=== PATIENT | female | born 1970 | race African-American/Black ===

== ENCOUNTER 2017-03-23 10:34 | Emergency (ER) | payer MEDICAID, OTHER ==
[~2017-03-23] VITALS: Ht 172.7 cm; Wt 62.0 kg
[2017-03-23] MEDS ORDERED: LIDOCAINE HCL 1% 20ML VIAL (Pyxis) INJ INFIL ONE (13:00)
[2017-03-23 13:55] VITALS: BP 120/60
== END 2017-03-23 13:57 | disposition home or self-care (01) ==
LOC: ER 11:26
DX: S62.637A Displaced fracture of distal phalanx of left little finger, initial encounter for closed fracture (principal); S60.152A Contusion of left little finger with damage to nail, initial encounter; W23.0XXA Caught, crushed, jammed, or pinched between moving objects, initial encounter; Y93.89 Activity, other specified; Y92.89 Other specified places as the place of occurrence of the external cause; Y99.8 Other external cause status; Z88.6 Allergy status to analgesic agent; Z88.1 Allergy status to other antibiotic agents
CPT/HCPCS: 11740; 73130; 81025; 99284; J3490; Z7610; 10140

== ENCOUNTER 2017-07-26 11:11 | Emergency (ER) | payer OTHER ==
[~2017-07-26] VITALS: Ht 172.7 cm; Wt 74.8 kg
[2017-07-26 13:19] LABS: BASOPHILS % 0.7 % (0.0-2.0); EOSINOPHILS % 0.4 % (0.0-5.0); HEMOGLOBIN. 11.9 g/dL (12.0-16.0); LYMPHOCYTES % 24.7 % (20.0-50.0); MEAN CORPUSCULAR HEMOGLOBIN 28.4 pg (28.0-32.0); MEAN CORPUSCULAR VOLUME 85.9 fL (81.0-99.0); MEAN PLATELET VOLUME 7.9 fl (7.4-10.4); MONOCYTES % 4.7 % (2.0-8.0); NEUTROPHILS % 69.5 % (40.0-76.0); PLATELET 203 x1000/uL (130-400); RED BLOOD CELL COUNT 4.19 mill/uL (4.2-5.4); RED CELL DISTRIBUTION WIDTH 14.8 % (11.6-14.6)
[2017-07-26 13:21] LABS: CHLORIDE 105 mEq/L (98-107)
[2017-07-26 13:35] LABS: CLARITY URINE CLEAR (CLEAR); COLOR URINE YELLOW (YELLOW); KETONES URINE NEGATIVE (NEGATIVE); LEUKOCYTE ESTERASE URINE NEGATIVE (NEGATIVE); NITRITE URINE NEGATIVE (NEGATIVE); OCCULT BLOOD URINE NEGATIVE (NEGATIVE); PROTEIN URINE NEGATIVE (NEGATIVE); SPECIFIC GRAVITY URINE 1.016 (1.005-1.030); UROBILINOGEN URINE 0.2 E.U./dL (0.2-1.0)
[2017-07-26 15:00] VITALS: BP 108/64
[2017-07-26] MEDS ORDERED: ACETAMINOPHEN 325MG TABLET PO ONE (15:00)
== END 2017-07-26 16:55 | disposition home or self-care (01) ==
LOC: ER 11:11
DX: S89.91XA Unspecified injury of right lower leg, initial encounter (principal); S60.222A Contusion of left hand, initial encounter; S90.02XA Contusion of left ankle, initial encounter; S90.01XA Contusion of right ankle, initial encounter; Z88.6 Allergy status to analgesic agent; Z88.3 Allergy status to other anti-infective agents; W10.8XXA Fall (on) (from) other stairs and steps, initial encounter; Y93.89 Activity, other specified; Y92.018 Other place in single-family (private) house as the place of occurrence of the external cause
CPT/HCPCS: 36415; 73130; 73562; 73630; 80048; 81003; 81025; 85025; 93005; 99285; L1830; Z7610

== ENCOUNTER 2018-03-28 04:49 | Emergency (ER) | payer BC ==
[~2018-03-28] VITALS: Ht 175.3 cm; Wt 68.0 kg
[2018-03-28 08:14] LABS: CLARITY URINE CLEAR (CLEAR); COLOR URINE YELLOW (YELLOW); KETONES URINE NEGATIVE (NEGATIVE); LEUKOCYTE ESTERASE URINE NEGATIVE (NEGATIVE); NITRITE URINE NEGATIVE (NEGATIVE); OCCULT BLOOD URINE 1+ (NEGATIVE); PROTEIN URINE NEGATIVE (NEGATIVE); SPECIFIC GRAVITY URINE 1.015 (1.005-1.030); UROBILINOGEN URINE 0.2 E.U./dL (0.2-1.0)
[2018-03-28] MEDS ORDERED: ACETAMINOPHEN 325MG TABLET PO ONE (08:15)
[2018-03-28 09:10] VITALS: BP 149/72
== END 2018-03-28 09:12 | disposition home or self-care (01) ==
LOC: ER 04:49
DX: M16.11 Unilateral primary osteoarthritis, right hip (principal); M25.561 Pain in right knee; Z88.6 Allergy status to analgesic agent; Z88.3 Allergy status to other anti-infective agents
CPT/HCPCS: 73502; 73562; 81025; 99284

== ENCOUNTER 2021-04-12 13:35 | Emergency (ER) | payer BC, MEDICAID ==
[~2021-04-12] VITALS: Ht 170.2 cm; Wt 75.0 kg
[2021-04-12 13:39] VITALS: BP 164/77
== END 2021-04-12 15:53 | disposition home or self-care (01) ==
LOC: ER 13:35
DX: S70.02XA Contusion of left hip, initial encounter (principal); V49.49XA Driver injured in collision with other motor vehicles in traffic accident, initial encounter; Y93.89 Activity, other specified; Y92.488 Other paved roadways as the place of occurrence of the external cause; Z96.643 Presence of artificial hip joint, bilateral
CPT/HCPCS: 73502; 99283

== ENCOUNTER 2022-11-08 12:45 | Emergency (ER) | payer MEDICAID ==
[~2022-11-08] VITALS: Ht 175.3 cm; Wt 77.0 kg
[2022-11-08 12:54] VITALS: O2SAT 99
[2022-11-08 13:34] LABS: BASOPHILS % 0.5 % (0.0-2.0); EOSINOPHILS % 0.7 % (0.0-5.0); HEMATOCRIT. 38.5 % (36.0-48.0); HEMOGLOBIN. 12.4 g/dL (12.0-16.0); LYMPHOCYTES % 23.7 % (20.0-50.0); MEAN CORPUSCULAR HEMOGLOBIN 27.8 pg (28.0-32.0); MEAN CORPUSCULAR HGB CONC 32.3 g/dL (31.0-37.0); MEAN CORPUSCULAR VOLUME 86.2 fL (81.0-99.0); MEAN PLATELET VOLUME 8.4 fl (7.4-10.4); MONOCYTES % 4.7 % (2.0-8.0); NEUTROPHILS % 70.4 % (40.0-76.0); PLATELET 221 x1000/uL (130-400); RED BLOOD CELL COUNT 4.46 mill/uL (4.2-5.4); RED CELL DISTRIBUTION WIDTH 15.2 % (11.6-14.6); WHITE BLOOD COUNT 6.9 x1000/uL (4.5-11.0)
[2022-11-08 13:42] LABS: CHLORIDE 105 mEq/L (98-107); INDEX HEMOLYSI 1 (1-3); INDEX ICTERIC 1 (1-4); INDEX LIPEMIC 1 (1-3); POTASSIUM 3.6 mEq/L (3.5-5.1); SODIUM 139 mEq/L (136-145)
[2022-11-08 13:52] LABS: ALANINE AMINOTRANSFERASE 16 IU/L (13-61); ALBUMIN 3.7 g/dL (3.4-5.0); ASPARTATE AMINOTRANSFERASE 21 IU/L (15-37); BILIRUBIN TOTAL 0.3 mg/dL (0.1-1.0); CALCIUM 9.4 mg/dL (8.5-10.1); CREATININE 0.7 mg/dL (0.6-1.3); GLUCOSE 124 mg/dL (70-105); PROTEIN TOTAL 7.9 g/dL (6.0-8.3); UREA NITROGEN BLOOD 12 mg/dL (7-21)
[2022-11-08 14:09] LABS: CARBON DIOXIDE 29 mEq/L (21-32)
[2022-11-08 14:56] LABS: HCG SCREEN NEGATIVE
[2022-11-08 16:26] VITALS: BP 132/62; PULSE 59; RESP 18; TEMP 99.2
== END 2022-11-08 16:28 | disposition home or self-care (01) ==
LOC: ER 12:45
DX: M79.89 Other specified soft tissue disorders (principal); I49.9 Cardiac arrhythmia, unspecified; Z88.6 Allergy status to analgesic agent; Z88.1 Allergy status to other antibiotic agents; Z88.9 Allergy status to unspecified drugs, medicaments and biological substances; Z98.890 Other specified postprocedural states
CPT/HCPCS: 36415; 71045; 73502; 80053; 81025; 84703; 85025; 93005; 93971; 99285